=== PATIENT | female | born 1935 | race Caucasian/White ===

== ENCOUNTER 2019-10-03 11:58 | Outpatient (CLI) | payer MEDICARE ==
--- NOTE | 2019-10-14 09:43 | MMO ---
Bilateral MAMMO Bilat Screen [facility]. CLINICAL HISTORY: Patient is 83 years old and is seen for screening. VIEWS: The views performed were: bilateral craniocaudal with tomosynthesis and bilateral mediolateral oblique with tomosynthesis. FILMS COMPARED: The present examination has been compared to prior imaging studies performed at [facility] on 08/17/2016, 08/20/2017, 09/19/2018 and 09/24/2018. This study has been interpreted with the assistance of computer-aided detection. MAMMOGRAM FINDINGS: There are scattered fibroglandular densities. There are no suspicious masses, suspicious calcifications, or new areas of architectural distortion. IMPRESSION: THERE IS NO MAMMOGRAPHIC EVIDENCE OF MALIGNANCY. A ROUTINE FOLLOW-UP MAMMOGRAM IN 1 YEAR IS RECOMMENDED. THE RESULTS OF THIS EXAM WERE SENT TO THE PATIENT. ACR BI-RADS Category 1 - Negative MAMMOGRAPHY NOTE: 1. A negative mammogram report should not delay a biopsy if a dominant of clinically suspicious mass is present. 2. Approximately 10% to 15% of breast cancers are not detected by mammography. 3. Adenosis and dense breasts may obscure an underlying neoplasm. Reported by: JOELLE HACKETT MD Electonically Signed: [id number]
== END 2019-10-03 11:59 | disposition home or self-care (01) ==
LOC: BICMAMMO 11:58
PROVIDERS: ATTEND Internal Medicine
DX: Z12.31 Encounter for screening mammogram for malignant neoplasm of breast (principal)
CPT/HCPCS: 77063; 77067

== ENCOUNTER 2020-10-04 10:42 | Outpatient (CLI) | payer MEDICARE ==
--- NOTE | 2020-10-04 11:13 | MMO ---
Bilateral MAMMO Bilat Screen [facility]. CLINICAL HISTORY: Patient is 84 years old and is seen for screening. The patient has no family history of breast cancer. The patient has no personal history of cancer. VIEWS: The views performed were: bilateral craniocaudal with tomosynthesis and bilateral mediolateral oblique with tomosynthesis. FILMS COMPARED: The present examination has been compared to prior imaging studies performed at [facility] on 10/03/2019, and at [facility] on 08/20/2017, 09/19/2018 and 09/24/2018. This study has been interpreted with the assistance of computer-aided detection. MAMMOGRAM FINDINGS: There are scattered fibroglandular densities. There are benign appearing calcifications seen in both breasts. There are no suspicious masses, suspicious calcifications, or new areas of architectural distortion. IMPRESSION: THERE IS NO MAMMOGRAPHIC EVIDENCE OF MALIGNANCY. A ROUTINE FOLLOW-UP MAMMOGRAM IN 1 YEAR IS RECOMMENDED. THE RESULTS OF THIS EXAM WERE SENT TO THE PATIENT. ACR BI-RADS Category 2 - Benign finding MAMMOGRAPHY NOTE: 1. A negative mammogram report should not delay a biopsy if a dominant of clinically suspicious mass is present. 2. Approximately 10% to 15% of breast cancers are not detected by mammography. 3. Adenosis and dense breasts may obscure an underlying neoplasm. Reported by: AMELIA DIEGO MD Electonically Signed: [id number]
== END 2020-10-04 10:43 | disposition home or self-care (01) ==
LOC: BICMAMMO 10:42
PROVIDERS: ATTEND Internal Medicine
DX: Z12.31 Encounter for screening mammogram for malignant neoplasm of breast (principal)
CPT/HCPCS: 77063; 77067

== ENCOUNTER 2020-12-27 12:12 | Outpatient (CLI) | payer MEDICARE ==
[~2020-12-27 12:12] MED LIST: Magnevist 469MG/ML 20 ML VIAL ONE
--- NOTE | 2020-12-27 14:17 | MRI ---
Exam: Brain MRI with and without contrast HISTORY: History: Recent second back seen dose. 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 Left facial droop. COMPARISON: None FINDINGS: Hemorrhage: No parenchymal hemorrhage or extra-axial hematoma Calvarium: Appropriate T1 marrow signal intensity Midline brain parenchyma: Unremarkable Cerebrum:No parenchymal mass, mass effect or midline shift. Brain volume, age-appropriate. Cortical g ray-white matter differentiation is preserved. No hydrocephalus. There are scattered T2 and FLAIR white matter hyperintensities due to chronic small vessel ischemic change. Ventricles: No evidence of hydrocephalus. Sinuses and mastoid air cells: Right mastoid sinus mucus retention cysts. Diffusion: Central arterial flow is maintained. Absent restricted diffusion. Postcontrast images: No pathologic enhancement of the brain parenchyma. IMPRESSION: 1. Absent restricted diffusion. No acute infarction 2. No abnormal enhancement or signal intensity in either 7th cranial nerve 3. No pathologic enhancement of the brain parenchyma. There are scattered chronic small vessel ischem ic changes of the white matter.
== END 2020-12-27 12:13 | disposition home or self-care (01) ==
LOC: BICMRI 12:12
PROVIDERS: ATTEND Internal Medicine
DX: G51.0 Bell's palsy (principal); I67.82 Cerebral ischemia; E11.9 Type 2 diabetes mellitus without complications
CPT/HCPCS: 70553; 80048; 83036; A9579

== ENCOUNTER → 2021-08-08 | Outpatient (CLI) | payer MEDICARE ==
[2021-08-09 08:58] LABS: SARS-CoV-2 PCR by NAA Not Detected (NotDetected)
== END ==
LOC: LABBT 14:15
PROVIDERS: ATTEND Ophthalmology Retina Specialist
DX: Z01.812 Encounter for preprocedural laboratory examination (principal); H43.821 Vitreomacular adhesion, right eye; H54.7 Unspecified visual loss; Z20.822 Contact with and (suspected) exposure to COVID-19
CPT/HCPCS: U0003; U0005

== ENCOUNTER 2021-08-11 06:02 | Day surgery (SDC) | payer MEDICARE ==
[2021-08-09 13:32] VITALS: BMI 23.2
[2021-08-11] MEDS ORDERED: Fentanyl 100 MCG/2 ML VIAL ONE (06:21)
[2021-08-11] MEDS ORDERED: PROPOFOL 20 ML ONE (06:21)
[2021-08-11] MEDS ORDERED: Phenylephrine 2.5% Ophth Soln 5 ML BOT ONE (06:23)
[2021-08-11] MEDS ORDERED: Cyclopentolate 1% Opth Drop 2 ML BOT ONE (06:23)
[2021-08-11] MEDS ORDERED: Fluorouracil 100 MG, Enoxaparin Sodium 25 MG, EPINEPHrine 0.3 MG in Ophthalmic Irrigati... IRR SCH (06:45)
[2021-08-11] MEDS ORDERED: Bupivacaine PF 0.75% SDV 10 ML ONE (07:18)
[2021-08-11] MEDS ORDERED: Enoxaparin Sodium 30 MG/0.3 ML SYRINGE ONE (07:18)
[2021-08-11] MEDS ORDERED: Triamcinolone 40 MG/ML VIAL ONE (07:18)
[2021-08-11] MEDS ORDERED: Lidocaine 4% PF 5 ML AMP ONE (07:18)
== END 2021-08-11 08:40 | disposition home or self-care (01) ==
LOC: SDC 06:02
PROVIDERS: ATTEND Ophthalmology Retina Specialist
PROC: 08T43ZZ Resection of Right Vitreous, Percutaneous Approach (ICD-10-PCS; principal; 2021-08-11)
PROC: 08NE3ZZ Release Right Retina, Percutaneous Approach (ICD-10-PCS; 2021-08-11)
DX: H35.371 Puckering of macula, right eye (principal); H43.821 Vitreomacular adhesion, right eye; I10 Essential (primary) hypertension; Z87.891 Personal history of nicotine dependence; Z79.899 Other long term (current) drug therapy; Z88.0 Allergy status to penicillin; Z88.1 Allergy status to other antibiotic agents; Z91.041 Radiographic dye allergy status; Z98.41 Cataract extraction status, right eye; Z98.42 Cataract extraction status, left eye
CPT/HCPCS: J0171; J1650; J2704; J3010; J3301; J3490; J9190

== ENCOUNTER 2021-11-08 14:50 | Outpatient (CLI) | payer MEDICARE | END 2021-11-08 14:51 | disposition home or self-care (01) | LOC: BICMAMMO 14:50 | PROVIDERS: ATTEND Family Medicine | DX: Z12.31 Encounter for screening mammogram for malignant neoplasm of breast (principal) | CPT/HCPCS: 77063; 77067 ==

== ENCOUNTER 2022-12-28 11:38 | Outpatient (CLI) | payer MEDICARE | END 2022-12-28 11:39 | disposition home or self-care (01) | LOC: BICMAMMO 11:38 | PROVIDERS: ATTEND Internal Medicine | DX: Z12.31 Encounter for screening mammogram for malignant neoplasm of breast (principal) | CPT/HCPCS: 77063; 77067 ==

== ENCOUNTER 2024-01-02 11:38 | Outpatient (CLI) | payer MEDICARE | END 2024-01-02 11:39 | disposition home or self-care (01) | LOC: BICMAMMO 11:38 | PROVIDERS: ATTEND Internal Medicine | DX: Z12.31 Encounter for screening mammogram for malignant neoplasm of breast (principal) | CPT/HCPCS: 77063; 77067 ==

== ENCOUNTER 2025-09-11 10:10 | Outpatient (CLI) | payer MEDICARE | END 2025-09-11 10:11 | disposition home or self-care (01) | LOC: BICMAMMO 10:10 | PROVIDERS: ATTEND Family Medicine | DX: M81.0 Age-related osteoporosis without current pathological fracture (principal); M85.851 Other specified disorders of bone density and structure, right thigh; M85.852 Other specified disorders of bone density and structure, left thigh | CPT/HCPCS: 77080 ==